=== PATIENT | female | born 1995 | race African-American/Black ===

== ENCOUNTER 2019-10-12 19:13 | Emergency (ER) | payer SELFPAY ==
[~2019-10-12] VITALS: Ht 160 cm; Wt 75.7 kg
[2019-10-12 19:20] VITALS: BP 142/87
--- NOTE | 2019-10-12 19:20 | NUR ---
ED Nurse Note: Patient walked into ED c/o cramping lower abdominal pain with onset for "several months now" she rates her pain a 7/10 pain and nausea. patient is alert and oriented x4, IV started on left AC 20 gauge. patient placed in bed with siderails up. will continue to monitor
--- NOTE | 2019-10-12 19:45 | NUR ---
HAND-OFF: Report given to Enrique Elena RN.
[2019-10-12 19:51] LABS: EOSINOPHILS % (AUTO) 0.7 % (0.0-3.0); HEMATOCRIT 40.8 % (37.0-47.0); HEMOGLOBIN 13.2 G/DL (12.0-16.0); LYMPHOCYTES % (AUTO) 31.1 % (20.0-45.0); MEAN CORPUSCULAR VOLUME 86 FL (80-99); NEUTROPHILS % (AUTO) 60.2 % (45.0-75.0); PLATELET COUNT 271 K/UL (150-450); RED BLOOD COUNT 4.72 M/UL (4.20-5.40); RED CELL DISTRIBUTION WIDTH 12.4 % (11.6-14.8); WHITE BLOOD COUNT 8.8 K/UL (4.8-10.8)
--- NOTE | 2019-10-12 19:59 | NUR ---
ED Nurse Note: US AT BEDSIDE
[2019-10-12 20:09] LABS: APPEARANCE,URINE CLEAR; BILIRUBIN, URINE NEGATIVE (NEGATIVE); COLOR,URINE PALE YELLOW; GLUCOSE, URINE (UA) 2+ (NEGATIVE); KETONES,URINE NEGATIVE (NEGATIVE); LEUKOCYTE ESTERASE ,URINE 2+ (NEGATIVE); NITRITE,URINE NEGATIVE (NEGATIVE); PH,URINE 6 (4.5-8.0); PROTEIN,URINE NEGATIVE (NEGATIVE); UROBILINOGEN,URINE NORMAL MG/DL (0.0-1.0)
--- NOTE | 2019-10-12 20:10 | Emergency Room Report ---
History of Present Illness General Chief Complaint: Abdominal Pain Source: Patient (Eli Martinez) Present Illness HPI 24-year-old female with no significant past medical history here complaining of several months of bilateral lower quadrant abdominal pain rating it 7 out of 10 and intermittent. Reports that started when she stopped her. In mid August. Patient reports that she has been spotting every now and then since August. Reports that she was last sexually active in July and has taken an in-home test in July which came back questionable. Denies any diarrhea, however complains of constipation and occasional nausea vomiting. Denies any recent travel, fever and chills, S OB, chest pain, URI symptoms. Denies vaginal discharge. Denies history of tobacco smoke, drug use, marijuana intake , and reports that every now and then she drinks alcohol. Has not taken medication for symptom relief. Reports in the past week her symptoms started getting worse and she started seeing small amount of blood in her stool. Also has been spotting more. (Eli Martinez) Allergies: Coded Allergies: No Known Allergies (Unverified , 10/12/19) COVID-19 Screening Contact w/high risk pt: No Recent Travel to affected area: No Experienced COVID-19 symptoms?: No (Eli Martinez) Patient History Past Medical History: see triage record Past Surgical History: unable to obtain Pertinent Family History: none Last Menstrual Period: aug 2019 Now: No : 0 Para: 0 Immunizations: UTD Reviewed Nursing Documentation: PMH: Agreed; PSxH: Agreed (Eli Martinez) Nursing Documentation-PMH Past Medical History: No History, Except For (Eli Martinez) Review of Systems All Other Systems: negative except mentioned in HPI (Eli Martinez) Physical Exam Vital Signs Date Time Temp Pulse Resp B/P (MAP) Pulse Ox O2 Delivery O2 Flow Rate FiO2 10/12/19 19:16 98.1 109 18 142/87 (105) 98 Sp02 EP Interpretation: reviewed, normal General Appearance: no apparent distress, alert, GCS 15, non-toxic Head: normocephalic, atraumatic Eyes: bilateral eye normal inspection, bilateral eye PERRL ENT: hearing grossly normal, normal pharynx, no angioedema, normal voice Neck: full range of motion, supple/symm/no masses Respiratory: chest non-tender, lungs clear, normal breath sounds, no rhonchi, no respiratory distress, no retraction, no wheezing, speaking full sentences Cardiovascular #1: regular rate, rhythm, no edema, no murmur Gastrointestinal: normal bowel sounds, non tender, soft, no mass, non-distended , no guarding, no hernia, no rebound Rectal: deferred Genitourinary: no CVA tenderness Musculoskeletal: back normal Neurologic: alert, motor strength/tone normal, oriented x3, sensory intact, responsive, speech normal Psychiatric: judgement/insight normal, memory normal, mood/affect normal, no suicidal/homicidal ideation Skin: no rash Lymphatic: no adenopathy (Eli Martinez) Medical Decision Making PA Attestation All my diagnosis and treatment plans were reviewed ad discussed with my supervising physician Dr. Carcamo (Eli Martinez) Diagnostic Impression: Primary Impression: Vaginal bleeding during ER Course 24-year-old female with no significant past medical history here complaining of several months of bilateral lower quadrant abdominal pain rating it 7 out of 10 and intermittent. Reports that started when she stopped her. In mid August. Patient reports that she has been spotting every now and then since August. Reports that she was last sexually active in July and has taken an in-home test in July which came back questionable. Denies any diarrhea, however complains of constipation and occasional nausea vomiting. Denies any recent travel, fever and chills, S OB, chest pain, URI symptoms. Denies vaginal discharge. Denies history of tobacco smoke, drug use, marijuana intake , and reports that every now and then she drinks alcohol. Has not taken medication for symptom relief. Reports in the past week her symptoms started getting worse and she started seeing small amount of blood in her stool. Also has been spotting more. Ddx considered but are not limited to: Ectopic , intrauterine , uterine fibroids, dysfunctional uterine bleeding, appendicitis, cholecystis, gastritis, gastroenteritis, UTI, pyelonephritis, SBO, diverticulitis, Vital signs: are WNL, pt. is afebrile H&PE are most consistent with: Vaginal bleeding during ORDERS: CBC, CMP, UA, urine test, pelvic ultrasound, lipase, diclagis , tylenol ED INTERVENTIONS: NS bolus, Zofran, Pepcid I signed out the patient to Dr. Carcamo at 8:30PM DISCHARGE: At this time pt. is stable for d/c to home. Will provide printed patient care instructions, and any necessary prescriptions. Care plan and follow up instructions have been discussed with the patient prior to discharge. You need to follow-up with PREMISES TECHNICIAN for further evaluation. (Eli Martinez) ER Course Signed out to me by ALFONSO Hogue. Please see her note for full history and physical Ultrasound shows IUP at 13 weeks with good heartbeat Trichomonas positive no sign of UTI I discussed findings with patient. Discussed with PREMISES TECHNICIAN. Recommended starting Flagyl treatment in 2 weeks along with Terconazole cream. Patient lives in [place]. Does not live here. Is isolated here due to coronavirus. We will provide her with women's health referrals. Sham (Wyatt Carcamo MD) CT/MRI/US Diagnostic Results CT/MRI/US Diagnostic Results : Imaging Test Ordered: pelvic US (Eli Martinez) Last Vital Signs Date Time Temp Pulse Resp B/P (MAP) Pulse Ox O2 Delivery O2 Flow Rate FiO2 10/12/19 19:20 109 18 10/12/19 19:20 98.1 142/87 98 (Eli Martinez) Disposition: HOME, SELF-CARE Condition: Stable Scripts Terconazole (TERCONAZOLE) 20 Gm Cream.appl 20 GM VG DAILY for 7 Days, #20 GM Prov: Wyatt Carcamo MD 10/12/19 Metronidazole* (FLAGYL*) 500 Mg Tablet 500 MG ORAL BID for 7 Days, #14 TAB Prov: Wyatt Carcamo MD 10/12/19 Docusate Sodium* (COLACE*) 100 Mg Capsule 100 MG ORAL DAILY, #14 CAP Prov: Eli Martinez 10/12/19 Acetaminophen* (TYLENOL EXTRA STRENGTH*) 500 Mg Tablet 500 MG ORAL Q8H PRN for Prn Headache/Temp > 101, #30 TAB 0 Refills Prov: Eli Martinez 10/12/19 Vits W-Ca,Fe,Fa(<1MG) ( VITAMINS) 1 Each Tablet 1 EACH PO DAILY, #30 TAB Prov: Eli Martinez 10/12/19 Doxylamine/Pyridoxine Hcl (DICLEGIS DR 10-10 MG TABLET) 1 Each Tablet. 1 EACH PO BID, #30 TAB Prov: Eli Martinez 10/12/19 Referrals: NOT CHOSEN IPA/,REFERRING (PCP) Patient Instructions: Abdominal Pain During Additional Instructions: Follow-up with your PREMISES TECHNICIAN for further evaluation in 24 to 48 hours. Avoid drinking alcohol, take your vitamins and your medication as directed. Eli Martinez Oct 12, 2019 20:10 Wyatt Carcamo MD Oct 12, 2019 22:11
[2019-10-12 20:19] LABS: ALANINE AMINOTRANSFERASE 24 U/L (12-78); ALBUMIN 3.8 G/DL (3.4-5.0); ALBUMIN/GLOBULIN RATIO 0.8 (1.0-2.7); ALKALINE PHOSPHATASE 67 U/L (46-116); ASPARTATE AMINO TRANSFERASE 14 U/L (15-37); BILIRUBIN,TOTAL 0.2 MG/DL (0.2-1.0); BLOOD UREA NITROGEN 5 mg/dL (7-18); CALCIUM 9.1 MG/DL (8.5-10.1); CARBON DIOXIDE 23 MMOL/L (21-32); CHLORIDE 99 MMOL/L (98-107); CREATININE 0.6 MG/DL (0.55-1.30); POTASSIUM 3.5 MMOL/L (3.5-5.1); SODIUM 136 MMOL/L (136-145)
[2019-10-12] MEDS ORDERED: PRENATAL VITAM1 EACH PO (20:22)
[2019-10-12] MEDS ORDERED: TYLENOL EXTRA500 MG ORAL (20:22)
[2019-10-12] MEDS ORDERED: DICLEGIS DR 101 EACH PO (20:22)
[2019-10-12] MEDS ORDERED: COLACE100 MG ORAL (20:22)
[2019-10-12 20:23] LABS: ANION GAP 14 mmol/L (5-15)
[2019-10-12] MEDS ORDERED: METRONIDAZOLE500 MG ORAL (21:16)
[2019-10-12] MEDS ORDERED: TERCONAZOLE20 G1 VG (21:16)
[2019-10-12 21:25] VITALS: BP 135/67
--- NOTE | 2019-10-12 21:25 | NUR ---
ER DISCHARGE NOTE: Patient is cleared to be discharged per ERMD, pt is aox4, on room air, with stable vital signs. pt was given dc and prescription instructions, pt was able to verbalize understanding, pt id band and iv site removed without complications. pt is able to ambulate with steady gait. pt took all belongings.
--- NOTE | 2019-10-12 21:36 | Diagnostic Imaging Report ---
EXAM: US First Trimester , Transabdominal and Transvaginal CLINICAL HISTORY: PAIN TECHNIQUE: Real-time transabdominal and transvaginal obstetrical ultrasound of the maternal pelvis and a first trimester with image documentation. Transvaginal imaging was used for better evaluation of the fetus and adnexa. COMPARISON: No relevant prior studies available. FINDINGS: There is a single living IUP with a mean gestational age by ultrasound of 13 weeks 1 day. Cardiac activity confirmed with a heart rate of 1 59 bpm. No evidence of extra chorionic hemorrhage. Negative for ovarian torsion. No significant pelvic fluid collections.
== END 2019-10-12 21:25 | disposition home or self-care (01) ==
LOC: EMR 19:31
DX: O26.851 Spotting complicating pregnancy, first trimester (principal); Z3A.13 13 weeks gestation of pregnancy; R10.30 Lower abdominal pain, unspecified
CPT/HCPCS: 36415; 76801; 76817; 80053; 81001; 81025; 83690; 84702; 85025; 96361; 96374; 96375; 99284; J2405; J7030; S0028